=== PATIENT | male | born 1990 | race Hispanic/Latino ===

== ENCOUNTER 2024-08-02 08:47 | Outpatient (CLI) | payer SELFPAY ==
--- NOTE | ~2024-08-02 | MR_ITS ---
EXAMINATION: MR knee RT wo con DATE: 08/02/2024 09:39 INDICATION: Right knee pain. Meniscal tear. TECHNIQUE: Magnetic resonance imaging (MRI) of the right knee was performed without intravenous contr ast. Sequences included coronal PD-weighted FSE, coronal PD-weighted FS FSE, sagittal T2-weighted FS E, sagittal PD-weighted FS FSE and axial PD weighted fat saturated FSE. COMPARISON: None. FINDINGS: Medial compartment: There appears be a longitudinal oblique tear extending to the inferior articular surface and the maria guadalupe pheral third of the meniscus at the junction of the posterior body and posterior horn. Articular cart ilage is normal. Lateral compartment: Discoid lateral meniscus without tear. Articular cartilage is normal. Patellofemoral compartment: Articular cartilage is normal. Ligaments and tendons: Anterior and posterior cruciate ligaments are normal. The medial collateral ligament and fibular ryan ateral ligament complex are normal. The extensor mechanism is normal. There is thickening and promine nt increased signal at the posterior medial corner of the knee involving the distal semimembranosus t endon and the oblique popliteal ligament. There is mild marrow edema and cystlike change along the no narticular surface of the posterior rim of the medial tibial plateau underlying the footplate of the semimembranosus tendon. Constellation of findings suggests chronic or acute on chronic low-grade part ial tear. The remaining visualized medial and lateral hamstring tendons as well as the iliotibial ban d are normal. Fluid: Moderate-sized right knee joint effusion. No loose osteochondral bodies identified. Osseous/other: Bone alignment is normal. There is additional mild cystlike change underlying the intercondylar emine nce. No fracture or pathologic marrow replacing process. IMPRESSION: 1. Posterior medial corner injury with mild thickening and increased signal consistent with low-grade partial tear of the distal semimembranosus tendon and oblique popliteal ligament and small oblique t ear extending to the inferior articular surface of the peripheral third of the junction of the body a nd posterior horn of the medial meniscus. 2. Discoid lateral meniscus without tear. 3. Moderate sized knee joint effusion. Reviewed, dictated and finalized at location A. IOPULMONARY SUPERVISOR IMPRESSION: 1. Posterior medial corner injury with mild thickening and increased signal con sistent with low-grade partial tear of the distal semimembranosus tendon and ob lique popliteal ligament and small oblique tear extending to the inferior artic ular surface of the peripheral third of the junction of the body and posterior horn of the medial meniscus. 2. Discoid lateral meniscus without tear. 3. Moderate sized knee joint effusion.
== END 2024-08-02 08:48 | disposition home or self-care (01) ==
PROVIDERS: PCP Orthopaedic Surgery; Visit Provider Orthopaedic Surgery
DX: M25.461 Effusion, right knee (principal); S83.281A Other tear of lateral meniscus, current injury, right knee, initial encounter; X58.XXXA Exposure to other specified factors, initial encounter
CPT/HCPCS: 73721